=== PATIENT | female | born 1985 | race Caucasian/White ===

== ENCOUNTER 2021-06-20 04:19 | Emergency (ER) | payer OTHER ==
[~2021-06-20] VITALS: Ht 162.6 cm; Wt 99.8 kg
[2021-06-20 04:20] VITALS: BP 156/92
--- NOTE | 2021-06-20 04:20 | NUR ---
PT W/C ASSISTED TO BED #2
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
[2021-06-20] MEDS ORDERED: HYDROcodone/APAP 5/325 MG 1 TAB TAB PO ONE (04:40)
--- NOTE | 2021-06-20 04:49 | NUR ---
REPORT GIVEN TO HIRO TRIPLETT
--- NOTE | 2021-06-20 05:25 | NUR ---
PT TAKEN TO CT
--- NOTE | 2021-06-20 05:42 | NUR ---
[place] [employer] AT BEDSIDE TALKING TO PATIENT
[2021-06-20] MEDS ORDERED: NACL 0.9% 1,000 ML IV ONE (06:30)
[2021-06-20] MEDS ORDERED: KETOROLAC 15 MG/ML VIAL IVP ONE ×2 (06:30→09:30)
--- NOTE | 2021-06-20 06:30 | NUR ---
CASE # [id number] GIVEN BY OFFICER Amita JENKINS
--- NOTE | 2021-06-20 06:45 | NUR ---
BLOOD DRAW DURING IV START. SAMPLE SENT TO LAB.
[2021-06-20] MEDS ORDERED: ONDANSETRON 4 MG/2 ML VIAL IVP ONE (06:55)
--- NOTE | 2021-06-20 07:07 | NUR ---
Report and continuation of care received from ABEBE Quiroz.
--- NOTE | 2021-06-20 07:07 | NUR ---
REPORT GIVEN TO SHAJI RN FOR CONTINUITY OF CARE
--- NOTE | 2021-06-20 07:10 | NUR ---
Patient resting comfortably with both eyes closed. phototypesetting equipment monitor and IVF remains in place. VSS; respirations even/unlabored. Bed locked in lowest position, side rails x 2, call light in reach.
[2021-06-20] MEDS ORDERED: NAPR-54 PO ×2 (07:21→09:28)
[2021-06-20] MEDS ORDERED: ACET-8386 PO ×2 (07:21→09:28)
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
--- NOTE | 2021-06-20 07:24 | NUR ---
Contacted Jacob, no answer - left voicemail
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
[2021-06-20 07:57] LABS: ANION GAP 17.5 (8-16); CARBON DIOXIDE 20.7 mmol/L (21-32); CREATININE 0.6 mg/dL (0.6-1.3); POTASSIUM 3.2 mmol/L (3.5-5.1)
--- NOTE | 2021-06-20 08:00 | NUR ---
Attempted to contact Jacob and Tash - no answer. Patient gave verbal consent to provide status updates to Jacob and Patti Wharton (Tash).
[2021-06-20] MEDS ORDERED: POTASSIUM CHLORIDE 20% 40 MEQ/15 ML UDC PO ONE (08:10)
--- NOTE | 2021-06-20 08:10 | NUR ---
Dr. Martel is evaluating patient at bedside.
--- NOTE | 2021-06-20 08:32 | NUR ---
Breakfast tray provided at [facility]; HOB elevated.
--- NOTE | 2021-06-20 08:39 | NUR ---
Alanna foy swab collected, walked to lab and handed to CPT. Mervat
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
--- NOTE | 2021-06-20 09:17 | NUR ---
Patient completed 50% of breakfast.
--- NOTE | 2021-06-20 09:21 | NUR ---
Uvaldo Arango contacted ER main; received verbal consent from patient for status update. Call transferred to mobile phone and patient speaking with Mrs. Arango at this time.
--- NOTE | 2021-06-20 09:29 | NUR ---
Patient reports "my left side of my face feels like its pulsating." States Toradol helped with pain management. Dr. Martel made aware.
--- NOTE | 2021-06-20 09:47 | NUR ---
Singh Garcia () [phone] [facility] called; transferred to [facility]. Secured transportation home to Singh Garcia ()'s home; advised of extended ETA d/t commute from [place]. Addendum: 06/20/21 at 0948 by [facility] Patient states she will feel safe at [facility]. Received verbal consent to provide Yanna update.
--- NOTE | 2021-06-20 09:54 | NUR ---
Singh (brother) states he feels more comfortable picking patient up. ETA 1 hour. Patient and ERMD made aware.
--- NOTE | 2021-06-20 09:58 | NUR ---
Patient assisted to restroom by wheelchair.
--- NOTE | 2021-06-20 10:05 | NUR ---
Patient wheelchair assisted back into bed. Malika (sister) on line via mobile phone
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
--- NOTE | 2021-06-20 11:10 | NUR ---
Singh in [facility].
[2021-06-20 11:20] VITALS: BP 132/72
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
== END 2021-06-20 11:20 | disposition home or self-care (01) ==
LOC: MED 04:19
DX: S02.32XA Fracture of orbital floor, left side, initial encounter for closed fracture (principal); S02.31XA Fracture of orbital floor, right side, initial encounter for closed fracture; S06.0X0A Concussion without loss of consciousness, initial encounter; S00.83XA Contusion of other part of head, initial encounter; E87.6 Hypokalemia; R51.9 Headache, unspecified; Z20.822 Contact with and (suspected) exposure to COVID-19; Z88.0 Allergy status to penicillin; Y08.89XA Assault by other specified means, initial encounter; Y93.89 Activity, other specified; Y92.89 Other specified places as the place of occurrence of the external cause; Y99.8 Other external cause status
CPT/HCPCS: 36415; 70450; 70486; 71045; 72125; 80048; 81025; 83735; 87426; 96361; 96374; 96375; 99285; J1885; J2405; J7030